=== PATIENT | female | born 1980 | race Caucasian/White ===

== ENCOUNTER 2019-01-05 12:59 | Inpatient (IN) | payer OTHER ==
[~2019-01-05] VITALS: Ht 162.6 cm; Wt 3.6 kg
[~2019-01-05 12:59] MED LIST: PERCOCET 5/3251 TAB PO
[2019-01-05] MEDS ORDERED: PRENATABS RX T1 EACH PO (14:45)
[2019-01-08] MEDS ORDERED: PERCOCET 5-3251 EACH PO (09:32)
[2019-01-08] MEDS ORDERED: SURFAK240 M1 PO (09:32)
== END 2019-01-08 10:41 | disposition home or self-care (01) | DRG 788 ==
LOC: LDR 12:59 → SURG-SUITE 15:21 → OB/GYN 01-09 13:17
PROVIDERS: ADMIT Obstetrics & Gynecology
PROC: 4A1HXCZ Monitoring of Products of Conception, Cardiac Rate, External Approach (ICD-10-PCS; 2019-01-05)
PROC: 10D00Z1 Extraction of Products of Conception, Low, Open Approach (ICD-10-PCS; principal; 2019-01-05 13:00)
DX: O82 Encounter for cesarean delivery without indication (principal); Z3A.38 38 weeks gestation of pregnancy; Z37.0 Single live birth